=== PATIENT | male | born 1945 | race African-American/Black ===

== ENCOUNTER 2018-08-16 22:56 | Emergency (ER) | payer MEDICARE, MEDICAID ==
[~2018-08-16] VITALS: Ht 175.3 cm; Wt 73.0 kg
[2018-08-17 01:34] VITALS: BP 155/81
== END 2018-08-17 01:35 | disposition home or self-care (01) ==
LOC: ER 22:56
DX: R33.9 Retention of urine, unspecified (principal)
CPT/HCPCS: 51702; 99284

== ENCOUNTER 2020-10-31 05:58 | Inpatient (IN) | payer MEDICARE, MEDICAID ==
[~2020-10-31] VITALS: Ht 172.7 cm; Wt 65.8 kg
[2020-10-31] MEDS ORDERED: FENTANYL CITRATE/PF 500 MCG in SODIUM CHLORIDE 0.9% 40 ML IV STA (06:14)
[2020-10-31] MEDS ORDERED: MIDAZOLAM HCL 100 MG in DEXT 5% WATER 80 ML IV ONE (06:15)
[2020-10-31] MEDS ORDERED: FENTANYL CITRATE/PF 50MCG/ML 2ML VIAL IV ONE (06:15)
[2020-10-31] MEDS ORDERED: ETOMIDATE 2MG/ML 10ML VIAL IV ONE (06:15)
[2020-10-31] MEDS ORDERED: SUCCINYLCHOLINE CHLORIDE 200MG/10ML IV ONE (06:15)
[2020-10-31] MEDS ORDERED: FENTANYL CITRATE/PF 1,000 MCG in SODIUM CHLORIDE 0.9% 80 ML IV SCH (06:30)
[2020-10-31] MEDS ORDERED: MIDAZOLAM HCL 100 MG in DEXT 5% WATER 80 ML IV SCH (06:30)
[2020-10-31] MEDS ORDERED: FENTANYL CITRATE/PF 50MCG/ML 2ML VIAL IV SCH (06:30)
[2020-10-31] MEDS ORDERED: FENTANYL CITRATE/PF 2,500 MCG in SODIUM CHLORIDE 0.9% 200 ML IV SCH (06:45)
[2020-10-31 06:46] LABS: BG BASE EXCESS -16.8 mmol/L (-2.0-2.0); BG CARBOXYHEMOGLOBIN 3.7 % (0.5-1.5); BG DEOXYHEMOGLOBIN 5.8 % (0.0-5.0); BG FRACTION INSPIRED OXYGEN 100; BG HCO3 ACT 16.4 mmol/L (22.0-26.0); BG METHEMOGLOBIN 0.3 % (0.0-1.5); BG OXYHEMOGLOBIN 90.2 % (94.0-97.0); BG PCO2 76.7 mmHg (35.0-45.0); BG PH 6.949 (7.350-7.450); BG PO2 107.3 mmHg (75.0-100.0); BG SAMPLE SITE LEFT RADIAL; BG TOTAL HEMOGLOBIN 14.1 g/dL (12.0-18.0); BG VENT MODE VENT - AC
[2020-10-31 07:34] LABS: BASOPHILS % 0.8 % (0.0-2.0); EOSINOPHILS % 2.7 % (0.0-5.0); HEMATOCRIT. 42.3 % (42.0-52.0); HEMOGLOBIN. 13.9 g/dL (14.0-18.0); LYMPHOCYTES % 48.1 % (20.0-50.0); MEAN CORPUSCULAR HEMOGLOBIN 33.1 pg (28.0-32.0); MEAN CORPUSCULAR VOLUME 100.7 fL (80.0-94.0); MEAN PLATELET VOLUME 9.6 fl (7.4-10.4); MONOCYTES % 5.6 % (2.0-8.0); NEUTROPHILS % 42.8 % (40.0-76.0); PLATELET 200 x1000/uL (130-400); RED CELL DISTRIBUTION WIDTH 16.9 % (11.6-14.6)
[2020-10-31 07:36] LABS: CLARITY URINE CLEAR (CLEAR); COLOR URINE YELLOW (YELLOW); KETONES URINE NEGATIVE (NEGATIVE); LEUKOCYTE ESTERASE URINE NEGATIVE (NEGATIVE); NITRITE URINE NEGATIVE (NEGATIVE); OCCULT BLOOD URINE NEGATIVE (NEGATIVE); PROTEIN URINE TRACE (NEGATIVE); SPECIFIC GRAVITY URINE 1.014 (1.005-1.030)
[2020-10-31 07:44] LABS: CHLORIDE 105 mEq/L (98-107)
[2020-10-31 07:53] LABS: CREATINE KINASE 190 IU/L (39-308)
[2020-10-31 08:10] LABS: D-DIMER 13.94 mg/L FEU (<0.50); INR 1.1; PROTHROMBIN TIME 11.8 sec (9.6-11.0)
[2020-10-31 10:27] LABS: BG BASE EXCESS -7.6 mmol/L (-2.0-2.0); BG HCO3 ACT 18.5 mmol/L (22.0-26.0); BG METHEMOGLOBIN 0.3 % (0.0-1.5); BG OXYGEN SATURATION 96.9 % (92.0-98.5); BG OXYHEMOGLOBIN 94.7 % (94.0-97.0); BG PCO2 39.9 mmHg (35.0-45.0); BG PH 7.285 (7.350-7.450); BG PO2 105.4 mmHg (75.0-100.0); BG SAMPLE SITE RIGHT BRACHIAL; BG TOTAL HEMOGLOBIN 16.1 g/dL (12.0-18.0); BG VENT MODE VENT - AC
[2020-10-31] MEDS ORDERED: ACETAMINOPHEN 325MG TABLET PO PRN ×2 (12:45)
[2020-10-31] MEDS ORDERED: GUAIFENESIN 200MG/10ML SUGAR FREE UDC PO PRN (12:45)
[2020-10-31] MEDS ORDERED: ONDANSETRON HCL 4MG/2ML INJ IV PRN (12:45)
[2020-10-31] MEDS ORDERED: DOCUSATE SODIUM 100MG CAPSULE PO PRN (12:45)
[2020-10-31] MEDS ORDERED: NITROGLYCERIN 0.4MG TABLET SL SL PRN (12:45)
[2020-10-31] MEDS ORDERED: ALBUTEROL 6.7GM HFA INHALER ORI PRN (12:45)
[2020-10-31] MEDS ORDERED: MAGNESIUM/ALUMINUM HYDROXIDE/SIMETHICONE 30ML UDC PO PRN (12:45)
[2020-10-31] MEDS ORDERED: NOREPINEPHRINE 8 MG in DEXT 5% WATER 242 ML IV PRN ×2 (12:45→21:30)
[2020-10-31] MEDS ORDERED: PIPERACILLIN/TAZ 3.375G PREMIX 50 ML IV SCH (14:00)
[2020-10-31] MEDS: BLOOD SUGAR DIAGNOSTIC STRIP TEST SCH ×3 (14:03→23:28)
[2020-10-31] MEDS: INSULIN LISPRO 100 UNITS/ML SUBCUT SCH ×3 (14:04→23:37)
[2020-10-31] MEDS: DEXT 5%/0.45% NACL 1000ML 1,000 ML IV SCH ×2 (14:30→23:28)
[2020-10-31] MEDS ORDERED: ALBUTEROL 6.7GM HFA INHALER ORI SCH (15:00)
[2020-10-31 15:18] LABS: FOLIC ACID (FOLATE) SERUM >20 ng/mL ng/mL (>5.38)
[2020-10-31] MEDS: ENOXAPARIN 60MG/0.6ML SYR SUBCUT SCH (15:20)
[2020-10-31 15:29] LABS: VITAMIN B12 SERUM 394 pg/mL (211-911)
[2020-10-31] MEDS ORDERED: VANCOMYCIN 1500MG in DEXTROSE 5% WATER 250ML IV SCH (16:00)
[2020-10-31] MEDS: ASCORBIC ACID 500 MG TABLET PO SCH (21:00)
[2020-10-31] MEDS ORDERED: ASPIRIN 300MG SUPP PR SCH (23:30)
[2020-10-31] MEDS ORDERED: HEPARIN 5000 UNITS/ML VIAL IV SCH (23:30)
[2020-10-31] MEDS: DEXTROSE 50% WATER 50ML SYRINGE IV PRN (23:37)
[2020-10-31] MEDS ORDERED: IOHEXOL-300 100 ML BOTTLE ONE (23:55)
[2020-10-31] MEDS ORDERED: LIDOCAINE HCL 1% 20ML VIAL (Pyxis) INJ ONE (23:56)
[2020-10-31] MEDS ORDERED: IODIXANOL 320MG/ML 200ML BOTTLE ONE (23:56)
[2020-11-01] VITALS (45 sets, daily range): BP systolic 70–230; BP diastolic 25–80
[2020-11-01] MEDS ORDERED: NOREPINEPHRINE BITARTRATE 1MG/ML 4ML IV ONE ×2 (01:09→01:18)
[2020-11-01] MEDS ORDERED: EPTIFIBATIDE 2 MG/ML 10ML VIAL IV ONE (01:36)
[2020-11-01] MEDS ORDERED: TICAGRELOR 90 MG TABLET PO ONE (01:44)
[2020-11-01] MEDS ORDERED: ACETAMINOPHEN 325MG TABLET PO PRN (01:45)
[2020-11-01] MEDS ORDERED: ATROPINE SULFATE 1MG/10ML SYR IV PRN (01:45)
[2020-11-01] MEDS ORDERED: EPTIFIBATIDE 2 MG/ML 10ML VIAL IV SCH (02:00)
[2020-11-01] MEDS ORDERED: PHENYLEPHRINE 50 MG in DEXT 5% WATER 245 ML IV PRN ×4 (02:00)
[2020-11-01] MEDS: ENOXAPARIN 60MG/0.6ML SYR SUBCUT SCH ×2 (03:00→14:29)
[2020-11-01] MEDS ORDERED: VANCOMYCIN 750 MG PREMIX 150 ML IV SCH ×2 (06:00→21:00)
[2020-11-01] MEDS: BLOOD SUGAR DIAGNOSTIC STRIP TEST SCH ×4 (06:25→20:54)
[2020-11-01] MEDS ORDERED: DEXTROSE 50% WATER 50ML SYRINGE IV PRN (06:30)
[2020-11-01] MEDS: DEXTROSE 50% WATER 50ML SYRINGE IV PRN (06:35)
[2020-11-01] MEDS: INSULIN LISPRO 100 UNITS/ML SUBCUT SCH ×4 (08:00→22:11)
[2020-11-01] MEDS ORDERED: ALBUMIN HUMAN 25GM/100ML (25%) IV NR (08:17)
[2020-11-01] MEDS: PIPERACILLIN/TAZOBACTAM 3.375 G in DEXT 5% WATER 100 ML IV SCH ×3 (08:57→23:29)
[2020-11-01] MEDS ORDERED: ASPIRIN 81MG TABLET PO SCH (09:00)
[2020-11-01] MEDS ORDERED: SODIUM CHLORIDE 0.9% 250 ML IV ONE (09:00)
[2020-11-01] MEDS ORDERED: ZINC SULFATE 220 MG ( 50 ) CAPSULE PO SCH (09:00)
[2020-11-01] MEDS ORDERED: PANTOPRAZOLE SODIUM 40 MG/VIAL IV SCH (09:00)
[2020-11-01] MEDS ORDERED: PHENYLEPHRINE 100 MG in DEXT 5% WATER 240 ML IV PRN (10:00)
[2020-11-01] MEDS ORDERED: NOREPINEPHRINE 32 MG in DEXT 5% WATER 218 ML IV PRN (10:00)
[2020-11-01] MEDS ORDERED: SODIUM CHLORIDE 0.9% 1,000 ML IV SCH (10:00)
[2020-11-01 12:35] LABS: BG BASE EXCESS -24.8 mmol/L (-2.0-2.0); BG CARBOXYHEMOGLOBIN 0.1 % (0.5-1.5); BG DEOXYHEMOGLOBIN 1.8 % (0.0-5.0); BG FRACTION INSPIRED OXYGEN 85; BG HCO3 ACT 6.7 mmol/L (22.0-26.0); BG METHEMOGLOBIN 0.2 % (0.0-1.5); BG OXYGEN SATURATION 98.2 % (92.0-98.5); BG OXYHEMOGLOBIN 97.9 % (94.0-97.0); BG PH 6.913 (7.350-7.450); BG PO2 208.4 mmHg (75.0-100.0); BG SAMPLE SITE RIGHT RADIAL; BG TOTAL HEMOGLOBIN 10.1 g/dL (12.0-18.0); BG VENT MODE VENT - AC
[2020-11-01] MEDS: ASCORBIC ACID 500 MG TABLET PO SCH ×2 (12:56→20:54)
[2020-11-01] MEDS: TICAGRELOR 90 MG TABLET PO SCH ×2 (12:57→17:17)
[2020-11-01] MEDS ORDERED: SODIUM BICARBONATE 8.4% 1 MEQ/ML 50ML SYR IV NR (13:00)
[2020-11-01] MEDS ORDERED: SODIUM BICARBONATE 100 MEQ in DEXTROSE 5% WATER 1,000 ML IV SCH (14:30)
[2020-11-01] MEDS: DEXT 5%/0.45% NACL 1000ML 1,000 ML IV SCH (15:23)
[2020-11-01] MEDS ORDERED: DIGOXIN 500MCG/2ML AMP IV NR ×2 (15:30→15:45)
[2020-11-01] MEDS ORDERED: VASOPRESSIN 20 UNIT in SODIUM CHLORIDE 0.9% 99 ML IV PRN (15:30)
[2020-11-01] MEDS ORDERED: ALBUMIN HUMAN 25GM/100ML (25%) IV SCH (18:00)
[2020-11-01] MEDS ORDERED: NOREPINEPHRINE 32 MG in SODIUM CHLORIDE 0.9% 218 ML IV PRN (19:13)
[2020-11-01] MEDS ORDERED: PHENYLEPHRINE 100 MG in SODIUM CHLORIDE 0.9% 240 ML IV PRN (19:14)
[2020-11-01] MEDS: VASOPRESSIN 20 UNIT in SODIUM CHLORIDE 0.9% 99 ML IV PRN ×2 (19:24→22:07)
[2020-11-01] MEDS ORDERED: ATORVASTATIN CALCIUM 40MG TABLET PO SCH (21:00)
[2020-11-01] MEDS: EPINEPHRINE 10 MG in SODIUM CHLORIDE 0.9% 240 ML IV PRN ×2 (22:24→23:43)
[2020-11-01 23:33] LABS: *AMPHETAMINES SCREEN URINE NEGATIVE (NEGATIVE); *BARBITURATES SCREEN URINE NEGATIVE (NEGATIVE)
[2020-11-01 23:34] LABS: *BENZODIAZEPINES SCREEN URINE PRESUMTIVE POSITIVE (NEGATIVE); *COCAINE SCREEN URINE NEGATIVE (NEGATIVE); CANNABINOID URINE SCREEN NEGATIVE (NEGATIVE); METHADONE URINE SCREEN PRESUMTIVE POSITIVE (NEGATIVE); OPIATES URINE SCREEN PRESUMTIVE POSITIVE (NEGATIVE); PHENCYCLIDINE URINE SCREEN NEGATIVE (NEGATIVE)
[2020-11-02] MEDS ORDERED: FENTANYL CITRATE/PF 2,500 MCG in SODIUM CHLORIDE 0.9% 200 ML IV PRN ×2
[2020-11-02] MEDS ORDERED: DOPAMINE 800MG PREMIX (DOUBLE) 250 ML IV PRN (00:15)
[2020-11-02 01:00] VITALS: BP 68/35
[2020-11-02 09:18] LABS: CHLORIDE 103 mEq/L (98-107)
[2020-11-02 09:25] LABS: PHOSPHORUS 4.8 mg/dL (2.5-4.9)
[2020-11-02 09:54] LABS: HEMATOCRIT. 45.4 % (42.0-52.0); HEMOGLOBIN. 14.9 g/dL (14.0-18.0); MEAN CORPUSCULAR HEMOGLOBIN 28.7 pg (28.0-32.0); MEAN CORPUSCULAR VOLUME 87.3 fL (80.0-94.0); MEAN PLATELET VOLUME 8.6 fl (7.4-10.4); PLATELET 555 x1000/uL (130-400); RED CELL DISTRIBUTION WIDTH 14.6 % (11.6-14.6)
[2020-11-02 15:29] LABS: PLATELET ESTIMATE INCREASED
== END 2020-11-02 03:00 | disposition expired | DRG 853 ==
LOC: ER 05:58 → EDBEDREQSVC 10:06 → EDBEDREQ 10:06 → 5EST 11-01 02:35
PROVIDERS: ADMIT Internal Medicine; ATTEND Internal Medicine
PROC: 027034Z Dilation of Coronary Artery, One Artery with Drug-eluting Intraluminal Device, Percutaneous Approach (ICD-10-PCS; principal; 2020-11-01)
PROC: 4A023N7 Measurement of Cardiac Sampling and Pressure, Left Heart, Percutaneous Approach (ICD-10-PCS; 2020-11-01)
PROC: B2111ZZ Fluoroscopy of Multiple Coronary Arteries using Low Osmolar Contrast (ICD-10-PCS; 2020-11-01)
PROC: B2151ZZ Fluoroscopy of Left Heart using Low Osmolar Contrast (ICD-10-PCS; 2020-11-01)
PROC: 06HY33Z Insertion of Infusion Device into Lower Vein, Percutaneous Approach (ICD-10-PCS; 2020-11-01)
PROC: B54BZZA Ultrasonography of Right Lower Extremity Veins, Guidance (ICD-10-PCS; 2020-11-01)
PROC: 5A12012 Performance of Cardiac Output, Single, Manual (ICD-10-PCS; 2020-11-01)
PROC: 5A1945Z Respiratory Ventilation, 24-96 Consecutive Hours (ICD-10-PCS; 2020-11-01)
PROC: 0BH18EZ Insertion of Endotracheal Airway into Trachea, Via Natural or Artificial Opening Endoscopic (ICD-10-PCS; 2020-11-01)
DX: A41.9 Sepsis, unspecified organism (principal); I21.3 ST elevation (STEMI) myocardial infarction of unspecified site; J96.01 Acute respiratory failure with hypoxia; R65.21 Severe sepsis with septic shock; I26.99 Other pulmonary embolism without acute cor pulmonale; J69.0 Pneumonitis due to inhalation of food and vomit; E44.0 Moderate protein-calorie malnutrition; E87.2 Acidosis; I44.2 Atrioventricular block, complete; I47.2 Ventricular tachycardia; G93.1 Anoxic brain damage, not elsewhere classified; D63.8 Anemia in other chronic diseases classified elsewhere; E11.9 Type 2 diabetes mellitus without complications; E78.5 Hyperlipidemia, unspecified; E83.51 Hypocalcemia; I10 Essential (primary) hypertension; I25.10 Atherosclerotic heart disease of native coronary artery without angina pectoris; Z20.828 Contact with and (suspected) exposure to other viral communicable diseases; I46.9 Cardiac arrest, cause unspecified; Z66 Do not resuscitate; N40.0 Benign prostatic hyperplasia without lower urinary tract symptoms; Z89.519 Acquired absence of unspecified leg below knee; Z68.22 Body mass index [BMI] 22.0-22.9, adult; Z79.899 Other long term (current) drug therapy
CPT/HCPCS: 36415; 36600; 71045; 80053; 80061; 80202; 80305; 81003; 82375; 82550; 82607; 82728; 82746; 82805; 82962; 83036; 83540; 83550; 83605; 83615; 83735; 83880; 84100; 84145; 84484; 85025; 85347; 85379; 85384; 86140; 87070; 87426; 87635; 92928; 93005; 93458; 93970; 99291; C1725; C1726; C1769; C1874; C1887; C1893; C9113; J1160; J1327; J1644; J1650; J1815; J2250; J2370; J2543; J3010; J3370; J3490; J7050; J7060; J7070; L1830; P9047; Q9967; J8499